=== PATIENT | male | born 1945 | race Caucasian/White ===

== ENCOUNTER 2017-08-07 13:19 | Inpatient (IN) | payer MEDICARE ==
[~2017-08-07 13:19] MED LIST: BISACODYL 10 MG SUPP PR; BISACODYL 5 MG TAB PO; FLEET ENEMA PR; ONDANSETRON 4 MG TAB (S0181) PO
[2017-08-07] MEDS: WARFARIN SOD 5 MG TAB PO (19:01)
[2017-08-07] MEDS: ENOXAPARIN 100MG/1ML SYRINGE (J1650) SC (19:02)
[2017-08-07] MEDS: levETIRAcetam 250MG TABLET (KEPPRA) PO (20:32)
[2017-08-07] MEDS: SENOKOT S TAB PO (20:32)
[2017-08-07] MEDS: oxyCODONE 5MG TAB PO (20:32)
[2017-08-07] MEDS: ACETAMINOPHEN TAB 650MG DOSE (2X325MG) PO (22:57)
[2017-08-08] MEDS: ENOXAPARIN 100MG/1ML SYRINGE (J1650) SC ×2 (05:43→17:31)
[2017-08-08] MEDS: ACETAMINOPHEN TAB 650MG DOSE (2X325MG) PO (05:46)
[2017-08-08 06:40] LABS: BASO % 0.4 % (0.0-1.0); EOS # 0.1 10^3/uL (0.0-0.50); EOS % 1.3 % (0.0-3.0); HEMATOCRIT 30.4 % (42.0-52.0); HEMOGLOBIN 10.4 g/dl (13.5-17.5); IMMATURE GRANULOCYTE % 0.7 % (0-3.0); LYMPH # 1.7 10^3/uL (1.5-4.5); LYMPH % 21.2 % (24.0-44.0); MEAN CORPUSCULAR HEMOGLOBIN 30.6 pg (27.0-33.0); MEAN CORPUSCULAR HGB CONC 34.2 g/dl (32.0-36.5); MEAN CORPUSCULAR VOLUME 89.4 fl (80.0-96.0); MONO # 0.5 10^3/uL (0.0-0.8); MONO % 6.5 % (0.0-5.0); NEUTROPHILS # 5.7 10^3/uL (1.8-7.7); NEUTROPHILS % 69.9 % (36.0-66.0); PLATELET COUNT, AUTOMATED 311 10^3/uL (150-450); RED CELL DISTRIBUTION WIDTH 13.1 % (11.5-14.5); WHITE BLOOD COUNT 8.2 10^3/uL (4.0-10.0)
[2017-08-08 06:52] LABS: INR 2.17
[2017-08-08 06:59] LABS: ALBUMIN 2.8 GM/DL (3.2-5.2); ALKALINE PHOSPHATASE 137 U/L (45-117); ALT/SGPT 42 U/L (12-78); ANION GAP 6 MEQ/L (8-16); AST/SGOT 31 U/L (7-37); BILIRUBIN,TOTAL 0.4 MG/DL (0.2-1.0); BLOOD UREA NITROGEN 12 MG/DL (7-18); CALCIUM LEVEL 8.3 MG/DL (8.8-10.2); CARBON DIOXIDE LEVEL 27 MEQ/L (21-32); CHLORIDE LEVEL 109 MEQ/L (98-107); CREATININE FOR GFR 0.84 MG/DL (0.70-1.30); GLOMERULAR FILTRATION RATE > 60.0 (>42); GLUCOSE, FASTING 111 MG/DL (70-100); POTASSIUM SERUM 3.2 MEQ/L (3.5-5.1); SODIUM LEVEL 142 MEQ/L (136-145); TOTAL PROTEIN 6.8 GM/DL (6.4-8.2)
[2017-08-08] MEDS: BUMETANIDE 1 MG TAB PO (09:36)
[2017-08-08] MEDS: PANTOPRAZOLE 40MG TAB (PROTONIX) PO (09:36)
[2017-08-08] MEDS: METOPROLOL SUCC *XL* 25MG TAB (TopROL *XL*) PO (09:36)
[2017-08-08] MEDS: SENOKOT S TAB PO ×2 (09:37→20:53)
[2017-08-08] MEDS: levETIRAcetam 250MG TABLET (KEPPRA) PO ×2 (09:37→20:53)
[2017-08-08] MEDS: SERTRALINE 100 MG TAB PO ×2 (09:37→20:53)
[2017-08-08] MEDS: MIRALAX *UNIT DOSE* 17GM PACKET PO (09:37)
[2017-08-08] MEDS: VALSARTAN 80 MG TAB (DIOVAN) PO (09:37)
[2017-08-08] MEDS ORDERED: PILL CRUSHER/CUTTER 1 EACH XX (11:15)
[2017-08-08] MEDS: POTASSIUM CHLORIDE 10 MEQ SR TABLET PO (12:45)
[2017-08-08] MEDS ORDERED: WARFARIN SOD 5 MG TAB PO (17:00)
[2017-08-08] MEDS: WARFARIN SOD 3 MG TAB PO (17:31)
[2017-08-08] MEDS: ATORVASTATIN 20 MG TAB PO (20:53)
[2017-08-08] MEDS: oxyCODONE 5MG TAB PO (20:55)
[2017-08-08] MEDS: traZODone 50 MG TAB PO (21:00)
[2017-08-09] MEDS: ENOXAPARIN 100MG/1ML SYRINGE (J1650) SC (06:07)
[2017-08-09 06:47] LABS: HEMATOCRIT 32.4 % (42.0-52.0); HEMOGLOBIN 10.9 g/dl (13.5-17.5); MEAN CORPUSCULAR HEMOGLOBIN 30.4 pg (27.0-33.0); MEAN CORPUSCULAR HGB CONC 33.6 g/dl (32.0-36.5); MEAN CORPUSCULAR VOLUME 90.3 fl (80.0-96.0); PLATELET COUNT, AUTOMATED 353 10^3/uL (150-450); RED BLOOD COUNT 3.59 10^6/uL (4.30-6.10); RED CELL DISTRIBUTION WIDTH 13.2 % (11.5-14.5); WHITE BLOOD COUNT 8.4 10^3/uL (4.0-10.0)
[2017-08-09 07:00] LABS: INR 2.15; PROTHROMBIN TIME 24.8 SECONDS (12.4-14.5)
[2017-08-09 07:12] LABS: ALBUMIN/GLOBULIN RATIO 0.71 (1.00-1.93); ALKALINE PHOSPHATASE 146 U/L (45-117); ALT/SGPT 52 U/L (12-78); ANION GAP 7 MEQ/L (8-16); AST/SGOT 43 U/L (7-37); BILIRUBIN,TOTAL 0.4 MG/DL (0.2-1.0); BLOOD UREA NITROGEN 13 MG/DL (7-18); CALCIUM LEVEL 8.5 MG/DL (8.8-10.2); CARBON DIOXIDE LEVEL 26 MEQ/L (21-32); CHLORIDE LEVEL 109 MEQ/L (98-107); CREATININE FOR GFR 0.87 MG/DL (0.70-1.30); GLOMERULAR FILTRATION RATE > 60.0 (>42); GLUCOSE, FASTING 101 MG/DL (70-100); POTASSIUM SERUM 3.4 MEQ/L (3.5-5.1); SODIUM LEVEL 142 MEQ/L (136-145); TOTAL PROTEIN 7.2 GM/DL (6.4-8.2)
[2017-08-09] MEDS: MIRALAX *UNIT DOSE* 17GM PACKET PO (09:00)
[2017-08-09] MEDS: levETIRAcetam 250MG TABLET (KEPPRA) PO ×2 (09:02→21:04)
[2017-08-09] MEDS: PANTOPRAZOLE 40MG TAB (PROTONIX) PO (09:02)
[2017-08-09] MEDS: BUMETANIDE 1 MG TAB PO (09:02)
[2017-08-09] MEDS: VALSARTAN 80 MG TAB (DIOVAN) PO (09:02)
[2017-08-09] MEDS: METOPROLOL SUCC *XL* 25MG TAB (TopROL *XL*) PO (09:03)
[2017-08-09] MEDS: SENOKOT S TAB PO ×2 (09:03→21:00)
[2017-08-09] MEDS: WARFARIN SOD 4 MG TAB PO (17:35)
[2017-08-09] MEDS: ATORVASTATIN 20 MG TAB PO (20:57)
[2017-08-09] MEDS: SERTRALINE 100 MG TAB PO (20:57)
[2017-08-09] MEDS: traZODone 50 MG TAB PO (21:04)
[2017-08-09] MEDS: oxyCODONE 5MG TAB PO (21:04)
[2017-08-10 07:08] LABS: HEMATOCRIT 31.6 % (42.0-52.0); HEMOGLOBIN 10.4 g/dl (13.5-17.5); MEAN CORPUSCULAR HEMOGLOBIN 29.8 pg (27.0-33.0); MEAN CORPUSCULAR HGB CONC 32.9 g/dl (32.0-36.5); MEAN CORPUSCULAR VOLUME 90.5 fl (80.0-96.0); PLATELET COUNT, AUTOMATED 331 10^3/uL (150-450); RED BLOOD COUNT 3.49 10^6/uL (4.30-6.10); RED CELL DISTRIBUTION WIDTH 13.5 % (11.5-14.5); WHITE BLOOD COUNT 8.2 10^3/uL (4.0-10.0)
[2017-08-10 07:24] LABS: INR 2.33; PROTHROMBIN TIME 26.5 SECONDS (12.4-14.5)
[2017-08-10 07:32] LABS: ANION GAP 4 MEQ/L (8-16); BLOOD UREA NITROGEN 13 MG/DL (7-18); CALCIUM LEVEL 8.5 MG/DL (8.8-10.2); CARBON DIOXIDE LEVEL 28 MEQ/L (21-32); CHLORIDE LEVEL 110 MEQ/L (98-107); CREATININE FOR GFR 0.82 MG/DL (0.70-1.30); GLOMERULAR FILTRATION RATE > 60.0 (>42); GLUCOSE, FASTING 95 MG/DL (70-100); POTASSIUM SERUM 3.2 MEQ/L (3.5-5.1); SODIUM LEVEL 142 MEQ/L (136-145)
[2017-08-10] MEDS: SENOKOT S TAB PO ×2 (07:58→21:18)
[2017-08-10] MEDS: levETIRAcetam 250MG TABLET (KEPPRA) PO ×2 (07:58→21:18)
[2017-08-10] MEDS: METOPROLOL SUCC *XL* 25MG TAB (TopROL *XL*) PO (07:58)
[2017-08-10] MEDS: BUMETANIDE 1 MG TAB PO (07:58)
[2017-08-10] MEDS: PANTOPRAZOLE 40MG TAB (PROTONIX) PO (07:58)
[2017-08-10] MEDS: VALSARTAN 80 MG TAB (DIOVAN) PO (07:59)
[2017-08-10] MEDS: MIRALAX *UNIT DOSE* 17GM PACKET PO (07:59)
[2017-08-10] MEDS: POTASSIUM CHLORIDE 10 MEQ SR TABLET PO (10:31)
[2017-08-10] MEDS: WARFARIN SOD 4 MG TAB PO (16:29)
[2017-08-10] MEDS: ACETAMINOPHEN TAB 650MG DOSE (2X325MG) PO (16:30)
[2017-08-10] MEDS: SERTRALINE 100 MG TAB PO (21:18)
[2017-08-10] MEDS: ATORVASTATIN 20 MG TAB PO (21:18)
[2017-08-10] MEDS: traZODone 50 MG TAB PO (21:18)
[2017-08-10] MEDS: zolPIDEM TARTRATE 5 MG TAB PO (21:18)
[2017-08-10] MEDS: oxyCODONE 5MG TAB PO (21:19)
[2017-08-10] MEDS: MACULAR PROTECT PO (21:19)
[2017-08-11 07:28] LABS: INR 2.39
[2017-08-11] MEDS: PANTOPRAZOLE 40MG TAB (PROTONIX) PO (10:00)
[2017-08-11] MEDS: SENOKOT S TAB PO ×2 (10:00→20:35)
[2017-08-11] MEDS: POTASSIUM CHLORIDE 10 MEQ SR TABLET PO (10:00)
[2017-08-11] MEDS: levETIRAcetam 250MG TABLET (KEPPRA) PO ×2 (10:00→20:35)
[2017-08-11] MEDS: METOPROLOL SUCC *XL* 25MG TAB (TopROL *XL*) PO (10:01)
[2017-08-11] MEDS: MACULAR PROTECT PO ×2 (10:01→20:36)
[2017-08-11] MEDS: BUMETANIDE 1 MG TAB PO (10:01)
[2017-08-11] MEDS: VALSARTAN 80 MG TAB (DIOVAN) PO (10:01)
[2017-08-11] MEDS: MIRALAX *UNIT DOSE* 17GM PACKET PO (10:01)
[2017-08-11] MEDS ORDERED: LIDOCAINE 5% OINT 30 GM TOP (10:30)
[2017-08-11] MEDS: WARFARIN SOD 4 MG TAB PO (17:43)
[2017-08-11] MEDS: ATORVASTATIN 20 MG TAB PO (20:35)
[2017-08-11] MEDS: oxyCODONE 5MG TAB PO (20:35)
[2017-08-11] MEDS: SERTRALINE 100 MG TAB PO (20:35)
[2017-08-11] MEDS: traZODone 50 MG TAB PO (20:35)
[2017-08-11] MEDS: zolPIDEM TARTRATE 5 MG TAB PO (20:35)
[2017-08-12 06:47] LABS: INR 2.39
[2017-08-12] MEDS: PANTOPRAZOLE 40MG TAB (PROTONIX) PO (09:55)
[2017-08-12] MEDS: METOPROLOL SUCC *XL* 25MG TAB (TopROL *XL*) PO (09:55)
[2017-08-12] MEDS: POTASSIUM CHLORIDE 10 MEQ SR TABLET PO (09:56)
[2017-08-12] MEDS: levETIRAcetam 250MG TABLET (KEPPRA) PO ×2 (09:56→20:51)
[2017-08-12] MEDS: MIRALAX *UNIT DOSE* 17GM PACKET PO (09:56)
[2017-08-12] MEDS: BUMETANIDE 1 MG TAB PO (09:56)
[2017-08-12] MEDS: VALSARTAN 80 MG TAB (DIOVAN) PO (09:56)
[2017-08-12] MEDS: MACULAR PROTECT PO ×2 (09:57→20:52)
[2017-08-12] MEDS: SENOKOT S TAB PO ×2 (09:57→20:50)
[2017-08-12] MEDS: WARFARIN SOD 4 MG TAB PO (17:03)
[2017-08-12] MEDS: ATORVASTATIN 20 MG TAB PO (20:50)
[2017-08-12] MEDS: zolPIDEM TARTRATE 5 MG TAB PO (20:50)
[2017-08-12] MEDS: SERTRALINE 100 MG TAB PO (20:50)
[2017-08-12] MEDS: traZODone 50 MG TAB PO (20:50)
[2017-08-12] MEDS: oxyCODONE 5MG TAB PO (20:52)
[2017-08-13 06:34] LABS: HEMATOCRIT 31.1 % (42.0-52.0); HEMOGLOBIN 10.4 g/dl (13.5-17.5); MEAN CORPUSCULAR HEMOGLOBIN 30.4 pg (27.0-33.0); MEAN CORPUSCULAR HGB CONC 33.4 g/dl (32.0-36.5); MEAN CORPUSCULAR VOLUME 90.9 fl (80.0-96.0); PLATELET COUNT, AUTOMATED 317 10^3/uL (150-450); RED BLOOD COUNT 3.42 10^6/uL (4.30-6.10); RED CELL DISTRIBUTION WIDTH 13.4 % (11.5-14.5); WHITE BLOOD COUNT 7.5 10^3/uL (4.0-10.0)
[2017-08-13 06:45] LABS: INR 2.39
[2017-08-13] MEDS: MIRALAX *UNIT DOSE* 17GM PACKET PO (08:06)
[2017-08-13] MEDS: BUMETANIDE 1 MG TAB PO (08:06)
[2017-08-13] MEDS: levETIRAcetam 250MG TABLET (KEPPRA) PO ×2 (08:06→20:32)
[2017-08-13] MEDS: PANTOPRAZOLE 40MG TAB (PROTONIX) PO (08:07)
[2017-08-13] MEDS: SENOKOT S TAB PO ×2 (08:07→20:32)
[2017-08-13] MEDS: POTASSIUM CHLORIDE 10 MEQ SR TABLET PO (08:07)
[2017-08-13] MEDS: VALSARTAN 80 MG TAB (DIOVAN) PO (08:08)
[2017-08-13] MEDS: METOPROLOL SUCC *XL* 25MG TAB (TopROL *XL*) PO (08:08)
[2017-08-13] MEDS: MACULAR PROTECT PO ×2 (08:08→20:32)
[2017-08-13] MEDS: WARFARIN SOD 4 MG TAB PO (17:14)
[2017-08-13] MEDS: traZODone 50 MG TAB PO (20:32)
[2017-08-13] MEDS: zolPIDEM TARTRATE 5 MG TAB PO (20:32)
[2017-08-13] MEDS: SERTRALINE 100 MG TAB PO (20:32)
[2017-08-13] MEDS: ATORVASTATIN 20 MG TAB PO (20:32)
[2017-08-14 07:04] LABS: BASO % 0.4 % (0.0-1.0); EOS # 0.1 10^3/uL (0.0-0.50); EOS % 1.6 % (0.0-3.0); IMMATURE GRANULOCYTE % 0.4 % (0-3.0); LYMPH % 27.8 % (24.0-44.0); MEAN CORPUSCULAR HEMOGLOBIN 30.5 pg (27.0-33.0); MEAN CORPUSCULAR HGB CONC 33.3 g/dl (32.0-36.5); MEAN CORPUSCULAR VOLUME 91.4 fl (80.0-96.0); MONO # 0.5 10^3/uL (0.0-0.8); MONO % 6.6 % (0.0-5.0); NEUTROPHILS # 4.5 10^3/uL (1.8-7.7); NEUTROPHILS % 63.2 % (36.0-66.0); PLATELET COUNT, AUTOMATED 320 10^3/uL (150-450); RED BLOOD COUNT 3.61 10^6/uL (4.30-6.10); RED CELL DISTRIBUTION WIDTH 13.4 % (11.5-14.5); WHITE BLOOD COUNT 7.1 10^3/uL (4.0-10.0)
[2017-08-14 07:15] LABS: PROTHROMBIN TIME 26.2 SECONDS (12.4-14.5)
[2017-08-14 07:36] LABS: ANION GAP 5 MEQ/L (8-16); BLOOD UREA NITROGEN 16 MG/DL (7-18); CALCIUM LEVEL 8.9 MG/DL (8.8-10.2); CARBON DIOXIDE LEVEL 28 MEQ/L (21-32); CHLORIDE LEVEL 107 MEQ/L (98-107); CREATININE FOR GFR 0.89 MG/DL (0.70-1.30); GLOMERULAR FILTRATION RATE > 60.0 (>42); GLUCOSE, FASTING 104 MG/DL (70-100); POTASSIUM SERUM 3.9 MEQ/L (3.5-5.1); SODIUM LEVEL 140 MEQ/L (136-145)
[2017-08-14] MEDS: BUMETANIDE 1 MG TAB PO (08:27)
[2017-08-14] MEDS: POTASSIUM CHLORIDE 10 MEQ SR TABLET PO (08:27)
[2017-08-14] MEDS: levETIRAcetam 250MG TABLET (KEPPRA) PO ×2 (08:28→21:11)
[2017-08-14] MEDS: MIRALAX *UNIT DOSE* 17GM PACKET PO (08:28)
[2017-08-14] MEDS: PANTOPRAZOLE 40MG TAB (PROTONIX) PO (08:28)
[2017-08-14] MEDS: METOPROLOL SUCC *XL* 25MG TAB (TopROL *XL*) PO (08:28)
[2017-08-14] MEDS: MACULAR PROTECT PO ×2 (08:28→21:11)
[2017-08-14] MEDS: VALSARTAN 80 MG TAB (DIOVAN) PO (08:28)
[2017-08-14] MEDS: SENOKOT S TAB PO ×2 (08:29→21:00)
[2017-08-14] MEDS: WARFARIN SOD 4 MG TAB PO (16:08)
[2017-08-14] MEDS: zolPIDEM TARTRATE 5 MG TAB PO (21:11)
[2017-08-14] MEDS: traZODone 50 MG TAB PO (21:11)
[2017-08-14] MEDS: ATORVASTATIN 20 MG TAB PO (21:11)
[2017-08-14] MEDS: SERTRALINE 100 MG TAB PO (21:11)
[2017-08-14] MEDS: ACETAMINOPHEN TAB 650MG DOSE (2X325MG) PO (21:12)
[2017-08-15 07:11] LABS: INR 2.62; PROTHROMBIN TIME 29.1 SECONDS (12.4-14.5)
[2017-08-15] MEDS: PANTOPRAZOLE 40MG TAB (PROTONIX) PO (09:09)
[2017-08-15] MEDS: BUMETANIDE 1 MG TAB PO (09:09)
[2017-08-15] MEDS: POTASSIUM CHLORIDE 10 MEQ SR TABLET PO (09:09)
[2017-08-15] MEDS: METOPROLOL SUCC *XL* 25MG TAB (TopROL *XL*) PO (09:09)
[2017-08-15] MEDS: VALSARTAN 80 MG TAB (DIOVAN) PO (09:10)
[2017-08-15] MEDS: MIRALAX *UNIT DOSE* 17GM PACKET PO (09:10)
[2017-08-15] MEDS: SENOKOT S TAB PO (09:10)
[2017-08-15] MEDS: levETIRAcetam 250MG TABLET (KEPPRA) PO (09:10)
[2017-08-15] MEDS: MACULAR PROTECT PO (09:10)
== END 2017-08-15 14:25 | disposition home or self-care (01) | DRG 65 ==
LOC: M PM&R 13:19
DX: I62.00 Nontraumatic subdural hemorrhage, unspecified (principal); I50.22 Chronic systolic (congestive) heart failure; I48.2 Chronic atrial fibrillation; I11.0 Hypertensive heart disease with heart failure; G47.00 Insomnia, unspecified; K21.9 Gastro-esophageal reflux disease without esophagitis; E78.5 Hyperlipidemia, unspecified; E87.6 Hypokalemia; F32.9 Major depressive disorder, single episode, unspecified; G40.409 Other generalized epilepsy and epileptic syndromes, not intractable, without status epilepticus; Z79.01 Long term (current) use of anticoagulants; Z95.2 Presence of prosthetic heart valve; Z79.899 Other long term (current) drug therapy; Z97.4 Presence of external hearing-aid